=== PATIENT | male | born 2000 | race African-American/Black ===

== ENCOUNTER 2020-09-15 18:05 | Observation (INO) ==
[2020-09-15 20:00] LABS: Basophils % 0.3 % (0.0-0.8); Eosinophils # 0.1 10*3/uL (0.0-0.87); Eosinophils % 0.5 % (0.00-10.9); Hematocrit 45.3 VOL% (42.0-52.0); Hemoglobin 15.8 GM/DL (14.0-18.0); Immature Granulocytes % 0.3 %; Immature Granulocytes Absolute 0.03 #; Lymphocytes # 1.4 10*3/uL (1.4-4.0); Lymphocytes % 13.3 % (21.2-54.2); Mean Corpuscular HGB Conc 34.9 GM/DL (32-36); Mean Corpuscular Volume 79.9 FL (87-102); Monocytes % 7.4 % (1.7-12.7); Neutrophils % 78.2 % (38.7-73.9); Platelet Count 236 T/CUMM (130-400); Red Blood Count 5.67 MC/CUMM (3.8-5.5); Red Cell Distribution Width 12.1 % (9.3-17.3); White Blood Count 10.5 T/CUMM (4-12)
[2020-09-15] MEDS ORDERED: ONDANSETRON 4 MG/2 ML VIAL IV PRN (20:09)
[2020-09-15] MEDS ORDERED: VANCOMYCIN INJ 1,000 MG in SODIUM CHLORIDE 0.9% 250 ML IV STA ×2 (20:09→20:11)
[2020-09-15] MEDS ORDERED: ACETAMINOPHEN 325 MG TABLET PO PRN (20:09)
[2020-09-15 20:15] LABS: Albumin 4.1 G/DL (3.4-5.0); Bilirubin,Total 0.6 MG/DL (0.2-1.0); Calcium 9.8 MG/DL (8.5-10.1); Osmolality,Calculated 273.5 MOS/KG (273-304)
[2020-09-15] MEDS: MORPHINE 4 MG/1 ML VIAL IV PRN (20:47)
[2020-09-15] MEDS: PIPERACILLIN/TAZOBACTAM 3,375 MG in SODIUM CHLORIDE 0.9% 100 ML IV SCH (23:00)
[2020-09-15] MEDS: PANTOPRAZOLE 40 MG TABLET PO SCH (23:00)
[2020-09-15] MEDS: LACTATED RINGERS 1,000 ML IV SCH (23:01)
[2020-09-15 23:43] LABS: Bilirubin,Urine Negative (Negative); Blood, Urine Negative (Negative); Glucose,Urine (UA) Negative (Negative); Ketones,Urine 20 mg/dL (Negative); Mucus,Urine Occasional /LPF (Occasional); Nitrite,Urine Negative (Negative); Protein,Urine Negative; RBC,Urine 1 /HPF (0-4); Urine Appearance CLEAR (Clear); Urine Color Yellow (Yellow); Urine Specific Gravity 1.013 (1.001-1.035); Urine Urobilinogen < 2.0 EU/DL (0.2-1.0); WBC,Urine <1 /HPF (0-6)
[2020-09-16] MEDS: PIPERACILLIN/TAZOBACTAM 3,375 MG in SODIUM CHLORIDE 0.9% 100 ML IV SCH ×2 (05:33→14:04)
[2020-09-16] MEDS: LACTATED RINGERS 1,000 ML IV SCH (05:50)
[2020-09-16] MEDS: MORPHINE 4 MG/1 ML VIAL IV PRN ×2 (06:51→16:58)
[2020-09-16] MEDS ORDERED: VANCOMYCIN INJ 1,250 MG in SODIUM CHLORIDE 0.9% 250 ML IV SCH (09:00)
[2020-09-16] MEDS ORDERED: LIDOCAINE 1%/EPI INJ 20 ML VIAL ONE (10:31)
[2020-09-16] MEDS ORDERED: BUPIVACAINE MPF 0.25% 30 ML VIAL ONE (10:31)
[2020-09-16] MEDS ORDERED: diphenhydrAMINE 50 MG/1 ML VIAL IM PRN (11:46)
[2020-09-16] MEDS ORDERED: diphenhydrAMINE 50 MG/1 ML VIAL IV PRN (12:01)
[2020-09-16] MEDS ORDERED: MIDAZOLAM 2 MG/2 ML VIAL ONE (14:55)
[2020-09-16] MEDS ORDERED: fentaNYL 100 MCG/2 ML VIAL ONE ×2 (14:55→15:23)
[2020-09-16] MEDS ORDERED: LIDOCAINE 2% 5 ML VIAL ONE (14:59)
[2020-09-16] MEDS ORDERED: propofoL 200 MG/20 ML VIAL IV ONE (14:59)
[2020-09-16] MEDS: PANTOPRAZOLE 40 MG TABLET PO SCH (15:26)
[2020-09-16] MEDS ORDERED: KETOROLAC 30 MG/1 ML VIAL ONE (15:27)
[2020-09-16] MEDS ORDERED: ONDANSETRON 4 MG/2 ML VIAL ONE (15:28)
[2020-09-16] MEDS ORDERED: DEXAMETHASONE 4 MG/1 ML VIAL ONE (15:28)
[2020-09-16] MEDS ORDERED: ONDANSETRON 4 MG/2 ML VIAL IV PRN (15:59)
[2020-09-16] MEDS ORDERED: HYDROmorphone 2 MG/1 ML VIAL IV PRN (15:59)
[2020-09-16 16:56] VITALS: BP 128/65
== END 2020-09-16 18:50 | disposition home health service (06) ==
LOC: N.ED 18:05 → N.EDINP 18:05 → N.3E 21:09
PROVIDERS: ADMIT Student in an Organized Health Care Education/Training Program; ATTEND Student in an Organized Health Care Education/Training Program